=== PATIENT | female | born 1960 | race Two or more races ===

== ENCOUNTER 2024-02-23 14:09 | Emergency (ER) | payer BC, SELFPAY ==
[2024-02-23] VITALS (9 sets, daily range): BP systolic 155–182; BP diastolic 81–106; PULSE 72–87; TEMP 37.3; O2SAT 97; BMI 31.2
--- NOTE | 2024-02-23 14:39 | ECG_ITS ---
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
[2024-02-23 14:48] LABS: Bilirubin Urine NEGATIVE (NEGATIVE); Blood Urine NEGATIVE (NEGATIVE); Clarity Urine CLEAR (CLEAR); Color Urine YELLOW (YELLOW); Glucose Urine UA NEGATIVE (NEGATIVE); Ketones Urine NEGATIVE (NEGATIVE); Leukocyte Esterase Urine TRACE (NEGATIVE); Nitrite Urine NEGATIVE (NEGATIVE); Protein Urine NEGATIVE (NEG/TRACE); Specific Gravity Urine 1.015 (1.005-1.025); Urobilinogen Urine 0.2 EU/dL (0.2-1.0)
[2024-02-23 14:48] LABS: Basophils Absolute Auto 0.1 10^3/uL (0.0-0.1); Eosinophils Absolute Auto 0.3 10^3/uL (0.0-0.7); Hemoglobin 11.9 g/dL (12.0-16.0); Immature Granulocytes Abs Auto 0.02 10^3/uL (0.00-0.03); Immature Granulocytes Pct Auto 0.2 % (0.0-0.5); Lymphocytes Percent Auto 19.2 % (20.5-60.0); Mean Corpuscular HGB Conc 30.5 g/dL (29.9-35.2); Mean Corpuscular Hemoglobin 24.3 pg (26.7-34.0); Mean Corpuscular Volume 79.6 fL (81.0-99.0); Mean Platelet Volume 10.8 fL (9.5-13.5); Monocytes Absolute Auto 0.8 10^3/uL (0.3-0.8); Neutrophils Absolute Auto 7.1 10^3/uL (1.4-6.5); Neutrophils Percent Auto 68.6 % (43.0-75.0); Platelet Count 284 10^3/uL (150-450); Red Cell Distribution Width 17.1 % (11.0-15.0); White Blood Count 10.4 10^3/uL (4.0-11.0)
[2024-02-23 14:51] LABS: Urine Microscopic Indicated YES
[2024-02-23 15:03] LABS: Alanine Aminotransferase 24 U/L (14-59); Alkaline Phosphatase 112 U/L (46-116); Anion Gap 11.4; Aspartate Amino Transferase 20 U/L (15-37); BUN Creatinine Ratio 18.8; Bilirubin Total 0.6 mg/dL (0.2-1.0); Carbon Dioxide 27.3 mmol/L (21.0-32.0); Chloride 105 mmol/L (98-107); Estimated GFR (African America >60 (>=60); Estimated GFR (Non-African Ame 56 (>=60); Globulin 3.9 g/dL; Glucose 132 mg/dL (74-106); Magnesium 1.9 mg/dL (1.8-2.4); Potassium 3.7 mmol/L (3.5-5.1); Sodium 140 mmol/L (136-145); Total Protein 7.9 g/dL (6.4-8.2); Troponin I High Sensitivity 10.4 pg/mL (4.0-51.3)
[2024-02-23 15:03] LABS: Bacteria Urine NONE SEEN #/HPF (NONE SEEN); Cast Seen? NONE SEEN #/LPF (NONE SEEN); Crystals Seen? None Seen #/HPF (None Seen); Mucus Urine NONE SEEN (NONE SEEN); RBC Urine 0-2 #/HPF (0-2); Squamous Epithelial Cell Urine FEW #/LPF (NONE/RARE); Urine Culture Indicated NO
--- NOTE | 2024-02-23 15:31 | CT_ITS ---
The [address] [address] Patient Name: RIRI AHUJA MRN: [id number] date: 1960 Sex: F Assigned Patient Location: ER Current Patient Location: ER Accession/Order Number: [id number] Exam Date: 02/23/2024 15:25 Report Date: 02/23/2024 15:46 At the request of: EMILY PAUL Procedure: CT head/brain wo con EXAM: CT head/brain wo con HISTORY: dizziness COMPARISON: None. TECHNIQUE: Axial CT scans through the head were obtained without IV contrast administration. Dose reduction techniques were achieved by using: automated exposure control and/or adjustment of mA and /or kV according to patient size and/or use of iterative reconstruction technique. FINDINGS: There is no acute intracranial hemorrhage or abnormal extra-axial fluid collection. No mass effect or midline shift is seen. There is no evidence of large acute territorial infarction. There is no hydrocephalus. There is a small area of encephalomalacia in the left cerebellar hemisphere, suggestive of a remote lacunar infarct. There is partial empty sella. The calvaria and extra cranial soft tissues are unremarkable. The visualized orbits show no abnormality. The visualized paranasal sinuses show no air-fluid level. Mild mucosal thickening of bilateral ethmoid air cells. Mastoid air cells are clear. CT/CT head/brain wo con IMPRESSION: No acute intracranial abnormality. If there is sufficient clinical concern for acute brain parenchymal pathology, consider MRI for further evaluation. A small area of encephalomalacia in left cerebellar hemisphere, suggestive of a remote infarct. Partial empty sella. Electronically authenticated by: JASEN UNLU Date: 02/23/2024 15:46
--- NOTE | 2024-02-23 15:32 | ED_ITS ---
HPI HPI - General Adult General Chief complaint: Dizziness Stated complaint: DIZZY, SWEATS Time Seen by Provider: 02/23/24 14:25 Source: patient Mode of arrival: walk-in Limitations: no limitations History of Present Illness HPI narrative: 63-year-old female presents to the emergency department with complaint of dizziness. Acute onset when she was at work. Patient states she had been li fting parts, went to lift up her head, when she developed room spinning dizziness. This gradually improved, but then developed episode where she felt like she might pass out, everything sort of went dark. Employer advised her to come to the emergency department for further evaluation. States she is feeling better upon arrival. Has had history of vertigo in the past and her symptoms were similar, but did not last as long as prior incidents. Denies chest pain, shortness of breath, headache, palpitations. Quality:?As above Severity:?Moderate Timing:?As above, improved Context: Normal setting and activity? Modifying factors:?as above Associated symptoms: as above Related Data Home Medications ?Medication ?Instructions ?Recorded ?Confirmed ferrous sulfate 325 mg (65 mg 325 mg PO DAILY 02/23/24 02/23/24 iron) tablet,delayed release levothyroxine 112 mcg tablet 112 mcg PO DAILY 02/23/24 02/23/24 sotalol 80 mg tablet 80 mg PO Q12H 02/23/24 02/23/24 Allergies Allergy/AdvReac Type Severity Reaction Status Date / Time Penicillins Allergy Severe Verified 02/23/24 14:16 sulfamethoxazole Allergy Severe Verified 02/23/24 14:16 [From Bactrim] trimethoprim [From Bactrim] Allergy Severe Verified 02/23/24 14:16 Opioid HPI Opioid Management Most Recent Opioid Data: No Data to Display Review of Systems ROS Narrative CONST: Denies fever, chills HENT: Denies congestion, sore throat EYES: + blurred vision. Denies eye redness RESP: Denies cough, shortness of breath CV: Denies chest pain, palpitations GI: Denies abd pain, nausea, vomiting : Denies dysuria, flank pain MS: Denies back pain, myalgias SKIN: Denies color change, rash NEURO: + dizziness both spinning and presyncopal. Denies numbness, weakness PSYCHIATRIC: Denies confusion, agitation Exam Narrative Exam Narrative: Vital signs reviewed Nurses notes noted CONST: Nontoxic, well appearing, well nourished, in no distress.? No diaphoresis.?? HENT: normocephalic, atraumatic, moist mucous membrane, no abnormalities of the nose noted, hearing normal, no facial droop EYES: PERRL, EOMI.? normal appearing conjunctiva, no apparent discharge bilat NECK: normal appearance CV: normal rate, regular rhythm, no murmur RESP: normal effort, speaking in complete sentences. Lung sounds clear and equal bilat.? No wheezes, rales, rhonchi GI: normal bowel sounds, soft, nontender, no distension : no CVA tenderness MS: no edema, injury SKIN: no pallor NEURO: A&Ox 3, GCS = 15, no sensory, motor deficits.? CN normal as tested. NIH = 0.? No focal or central weakness. Steady gait. No abnormalities noted with coordination PSYCH: normal mood, affect.? Normal speech.? Memory intact Constitutional Vital Signs, click to edit/add: Last Vital Signs Temp 99.1 F 02/23/24 14:16 Pulse 75 02/23/24 15:42 Resp 21 H 02/23/24 15:42 BP 180/86 H 02/23/24 15:42 Pulse Ox 97 02/23/24 14:16 O2 Del Method Room Air 02/23/24 14:16 Course Reevaluation(s) Reevaluation #1: Continues to remain asymptomatic. Did not have recurrence of dizziness when she went from sitting to standing during orthostatic testing. Discussed with patient results, plan, and disposition. She is agreeable. Time: 16:05 Vital Signs Vital signs: Vital Signs Temperature 99.1 F 02/23/24 14:16 Pulse Rate 87 02/23/24 14:16 Respiratory Rate 18 02/23/24 14:16 Blood Pressure 170/106 H 02/23/24 14:16 Pulse Oximetry 97 02/23/24 14:16 Oxygen Delivery Method Room Air 02/23/24 14:16 Temperature 99.1 F 02/23/24 14:16 Pulse Rate 75 02/23/24 15:42 Respiratory Rate 21 H 02/23/24 15:42 Blood Pressure 180/86 H 02/23/24 15:42 Pulse Oximetry 97 02/23/24 14:16 Oxygen Delivery Method Room Air 02/23/24 14:16 Medical Decision Making MDM Narrative Medical decision making narrative: This is a pleasant 63-year-old female who presents to the emergency department with complaint of dizziness. Had episode of spinning when she lifted her head up while lifting some parts. A little while later, felt like she was presyncopal. She did have some mild blurring of her vision. Overall, on arrival, symptoms have improved. Has had history of vertigo in the past. On arrival, afebrile, vital signs are stable. On exam, nontoxic, well-appearing patient in no distress. No focal deficits or findings. Cranial nerves II through XII are grossly intact. She is ambulatory without ataxic gait. Heart regular rate and rhythm. Lung sounds clear and equal bilaterally. EKG reveals no acute or concerning changes Labs reveal no leukocytosis, anemia, thrombocytopenia, electrolyte imbalance, renal impairment. LFTs unremarkable. Troponin within normal limits. Urinalysis shows no evidence of infection. CT head imaging, per radiologist reveals no acute findings. Patient remained stable during ED course. No recurrence of dizziness. She was not orthostatic on nursing exam. She was given dose of Antivert. Favor nonspecific dizzy episode. Orthostasis less likely based on testing in the emergency department Arrhythmia less likely as patient did not have chest pain, palpitations. CVA less likely based on history and physical. ICH less likely based on CT scan Electrolyte imbalance less likely based on lab testing. She has noted her blood pressure to be increasing, attributing this to weight gain. She was advised to contact her primary provider and to create a diary for further evaluation. Disposition ? The patient was discharged. Plan: Patient will be discharged to home. Condition at time of disposition: stable and improved ? Advised to follow up with primary provider. Advised to return for any worsening and/or development of new, concerning signs or symptoms PLEASE NOTE: Portions of the medical record may have been produced using electronic supervisor finish end and may contain errors with respect to translation of words which may not have been identified prior to finalization of the chart. Medical Records Medical records reviewed: Yes I reviewed the patient's medical records Lab Data Lab results reviewed: Yes I reviewed the patient's lab results Labs: Lab Results 02/23/24 02/23/24 Range/Units 14:26 14:32 WBC 10.4 (4.0-11.0) 10^3/uL RBC 4.90 (4.20-5.40) 10^6/uL Hgb 11.9 L (12.0-16.0) g/dL Hct 39.0 (36.0-48.0) % MCV 79.6 L (81.0-99.0) fL MCH 24.3 L (26.7-34.0) pg MCHC 30.5 (29.9-35.2) g/dL RDW 17.1 H (11.0-15.0) % Plt Count 284 (150-450) 10^3/uL MPV 10.8 (9.5-13.5) fL Neut % (Auto) 68.6 (43.0-75.0) % Lymph % (Auto) 19.2 L (20.5-60.0) % Braxton % (Auto) 8.0 (1.7-12.0) % Eos % (Auto) 3.0 (0.9-7.0) % Baso % (Auto) 1.0 (0.2-2.0) % Neut # (Auto) 7.1 H (1.4-6.5) 10^3/uL Lymph # (Auto) 2.0 (1.2-3.8) 10^3/uL Braxton # (Auto) 0.8 (0.3-0.8) 10^3/uL Eos # (Auto) 0.3 (0.0-0.7) 10^3/uL Baso # (Auto) 0.1 (0.0-0.1) 10^3/uL Abs Immat Gran (auto) 0.02 (0.00-0.03) 10^3/uL Imm/Tot Granulo (auto) 0.2 (0.0-0.5) % Sodium 140 (136-145) mmol/L Potassium 3.7 (3.5-5.1) mmol/L Chloride 105 (98-107) mmol/L Carbon Dioxide 27.3 (21.0-32.0) mmol/L Anion Gap 11.4 BUN 19.0 H (7.0-18.0) mg/dL Creatinine 1.01 (0.55-1.02) mg/dL Est GFR ( Amer) >60 (>=60) Est GFR (Non-Af Amer) 56 L (>=60) BUN/Creatinine Ratio 18.8 Glucose 132 H (74-106) mg/dL Calcium 9.0 (8.5-10.1) mg/dL Magnesium 1.9 (1.8-2.4) mg/dL Total Bilirubin 0.6 (0.2-1.0) mg/dL AST 20 (15-37) U/L ALT 24 (14-59) U/L Alkaline Phosphatase 112 (46-116) U/L Troponin I High Sens 10.4 (4.0-51.3) pg/mL Total Protein 7.9 (6.4-8.2) g/dL Albumin 4.0 (3.4-5.0) g/dL Globulin 3.9 g/dL Albumin/Globulin Ratio 1.0 Urine Color Yellow (YELLOW) Urine Clarity Clear (CLEAR) Urine pH 6.0 (5.0-9.0) Ur Specific Raymond 1.015 (1.005-1.025) Urine Protein Negative (NEG/TRACE) mg/dL Urine Glucose (UA) Negative (NEGATIVE) mg/dL Urine Ketones Negative (NEGATIVE) mg/dL Urine Occult Blood Negative (NEGATIVE) Urine Nitrite Negative (NEGATIVE) Urine Bilirubin Negative (NEGATIVE) Urine Urobilinogen 0.2 (0.2-1.0) EU/dL Ur Leukocyte Esterase Trace A (NEGATIVE) Urine RBC 0-2 (0-2) #/HPF Urine WBC 2-5 A (NONE SEEN) #/HPF Ur Squamous Epith Cells Few A (NONE/RARE) #/LPF Urine Crystals None seen (None Seen) #/HPF Urine Bacteria None seen (NONE SEEN) #/HPF Urine Casts None seen (NONE SEEN) #/LPF Urine Mucus None seen (NONE SEEN) Ur Culture Indicated? No Imaging Data CT scan - head: Radiologist's impression: ITS Impressions Head CT 02/23/24 15:31 IMPRESSION: No acute intracranial abnormality. If there is sufficient clinical concern for acute brain parenchymal pathology, consider MRI for further evaluation. A small area of encephalomalacia in left cerebellar hemisphere, suggestive of a remote infarct. Partial empty sella. Electronically authenticated by: JASEN VARNER Date: 02/23/2024 15:46 ECG Data Attestation: I personally reviewed and interpreted this ECG as follows: (She performed at 1420 hrs. reveals sinus rhythm at 79 bpm. Normal axis. Frequent unifocal PVCs. No other acute abnormalities noted.) Discharge Plan Discharge Stand Alone Forms: Portal Instructions Chief Complaint: Dizziness Clinical Impression: Dizziness, Pre-syncope Patient Disposition: Home, Self-Care Time of Disposition Decision: 16:04 Condition: Good Mode of Transportation: Private Vehicle Prescriptions / Home Meds: No Action sotalol 80 mg tablet 80 mg PO Q12H levothyroxine 112 mcg tablet 112 mcg PO DAILY ferrous sulfate 325 mg (65 mg iron) tablet,delayed release (DR/EC) 325 mg PO DAILY Print Language: Qatari Instructions: Near Syncope (ED), Dizziness (ED) Referrals: Olegario PHELPS [Primary Care Provider] - 1 week Discharge Date/Time: 02/23/24 16:12
[2024-02-23] MEDS: MECLIZINE HCL 12.5 MG TABLET 25 MG PO (15:44)
[2024-02-23] MEDS: 0.9 % SODIUM CHLORIDE 1,000 ML 999 ML IV (15:44)
== END 2024-02-23 16:12 | disposition home or self-care (01) ==
PROVIDERS: Physician Assistant; Emergency Provider Emergency Medicine; PCP Family Medicine
DX: R42 Dizziness and giddiness (principal); R55 Syncope and collapse
CPT/HCPCS: 36415; 70450; 80053; 81001; 83735; 84484; 85025; 93005; 99285